=== PATIENT | female | born 2005 | race Caucasian/White ===

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

== ENCOUNTER 2024-04-04 15:38 | Outpatient (CLI) | payer OTHER | END 2024-04-04 15:39 | disposition home or self-care (01) | LOC: BICULT 15:38 | DX: Z34.82 Encounter for supervision of other normal pregnancy, second trimester (principal); Z3A.20 20 weeks gestation of pregnancy | CPT/HCPCS: 76805 ==